=== PATIENT | female | born 1935 | race Caucasian/White ===

== ENCOUNTER 2017-01-07 12:17 | Emergency (ER) | payer MEDICARE ==
[2017-01-07 12:36] VITALS: BP 141/55
--- NOTE | 2017-01-07 13:56 | UC ---
Neck Pain HPI - HPI Summary HPI Summary: Has a sebaceous cyst center upper back---has seen pcp and started on antibiotic- -with the plan to have it removed on Tuesday---Last night it opened and drained on its own, Patient was not sure how to take care of it - History of Current Complaint Chief Complaint: Pattie Stated Complaint: ABCESS ON NECK Time Seen by Provider: 01/07/17 13:44 Hx Obtained From: Patient ?: No Timing: Constant Onset/Duration: Gradual Onset, Still Present Severity: Mild Pain Intensity: 1 Pain Scale Used: 0-10 Numeric Location: Discrete At: - center of upper back Aggravating Factors: Nothing Alleviating Factors: Nothing, Heat Associated Signs & Symptoms: Positive: Negative - Allergies/Home Medications Allergies/Adverse Reactions: Allergies Allergy/AdvReac Type Severity Reaction Status Date / Time Sulfa Antibiotics Allergy Rash Verified 01/07/17 12:37 Home Medications: Home Medications Cyanocobalamin INJ * [Vitamin B12 INJ *] 1,000 mcg IM Q30D 01/07/17 [History Confirmed 01/07/17] PMH/Surg Hx/FS Hx/Imm Hx Previously Healthy: Yes - Surgical History Surgical History: Yes Surgery Procedure, Year, and Place: gallbladder. back surgery. colon resection for diverticulitis. reversal of colostomy - Family History Known Family History: Positive: None Family History: no cardio vascular issues in family lineage - Social History Occupation: Retired Lives: With Family Alcohol Use: Occasionally Substance Use Type: None Smoking Status (MU): Never Smoked Tobacco Review Of Systems Constitutional: Positive: Negative Skin: Positive: Other - opened and drained sebacous cyst center of upper back Eyes: Positive: Negative ENT: Positive: Negative Respiratory: Positive: Negative Cardiovascular: Positive: Negative Gastrointestinal: Positive: Negative Genitourinary: Positive: Negative Musculoskeletal: Positive: Negative Neurological: Positive: Negative Psychological: Positive: Negative All Other Systems Reviewed And Are Negative: Yes Physical Exam Triage Information Reviewed: Yes Appearance: Well-Appearing, No Pain Distress, Well-Nourished Vital Signs: Initial Vital Signs Temp 97.7 F 01/07/17 12:33 Pulse 64 01/07/17 12:33 Resp 16 01/07/17 12:33 BP 141/55 01/07/17 12:33 Pulse Ox 100 01/07/17 12:33 Vital Signs Reviewed: Yes Eye Exam: Normal Eyes: Positive: Conjunctiva Clear ENT Exam: Normal ENT: Positive: Normal ENT inspection, Hearing grossly normal. Negative: Nasal congestion, Nasal drainage, Trismus, Muffled/hoarse voice Dental Exam: Normal Neck exam: Normal Neck: Positive: Supple, Nontender, No Lymphadenopathy Respiratory Exam: Normal Respiratory: Positive: Chest non-tender, Lungs clear, Normal breath sounds, No respiratory distress Cardiovascular Exam: Normal Cardiovascular: Positive: RRR, No Murmur, Pulses Normal, Brisk Capillary Refill Musculoskeletal Exam: Normal Musculoskeletal: Positive: Strength Intact, ROM Intact, No Edema Neurological Exam: Normal Neurological: Positive: Alert, Muscle Tone Normal Psychological Exam: Normal Psychological: Positive: Normal Response To Family, Age Appropriate Behavior Skin: Positive: Other - beefy red drained cyst about dime size in diameter- Neck Pain Course/Dx - Course Course Of Treatment: soap and water wash warm compress change dressing bid and prn follow up with MD on Tuesday as planned - Differential Dx/Diagnosis Differential Dx/HQI/PQRI: Trauma, Other - Se[place] Cyst Provider Diagnoses: Draining Se[place] cyst center of upper back Discharge - Discharge Plan Condition: Stable Disposition: HOME Patient Education Materials: Cyst (ED), Warm Compress or Soak (ED) Referrals: Jalen Gibson MD [Primary Care Provider] - 01/10/17
== END 2017-01-07 13:59 | disposition home or self-care (01) ==
LOC: UCCORT 12:17
DX: L72.3 Sebaceous cyst (principal); Z88.2 Allergy status to sulfonamides; Z90.49 Acquired absence of other specified parts of digestive tract
CPT/HCPCS: 99201; G0463

== ENCOUNTER 2018-08-18 15:02 | Emergency (ER) | payer MEDICARE ==
[2018-08-18 15:42] VITALS: BP 152/65
--- NOTE | 2018-08-18 16:36 | UC ---
Hip/Pelvis Pain - HPI Summary HPI Summary: Pt c/o left hip pain and bruising s/p falling while walking off curb of road x 1 week ago. Pt is able to bear weight and ambulate with minimal c/o pain. - History Of Current Complaint Chief Complaint: UCLowerExtremity Stated Complaint: S/P FALL-LEFT HIP COMPLAINT Time Seen by Provider: 08/18/18 16:01 Hx Obtained From: Patient ?: No Onset/Duration: Sudden Onset, Lasting Days, Still Present Timing: Constant Severity Initially: Moderate Severity Currently: Mild Pain Intensity: 3 Character Of Pain: Dull, Aching Aggravating Factor(s): Movement, Weight Bearing Alleviating Factor(s): Rest, Position Associated Signs And Symptoms: Positive: Bruising - Risk Factors Septic Arthritis Risk Factor: Extremes of Age - Allergies/Home Medications Allergies/Adverse Reactions: Allergies Allergy/AdvReac Type Severity Reaction Status Date / Time Sulfa (Sulfonamide Allergy Intermediate Rash Verified 08/18/18 15:42 Antibiotics) PMH/Surg Hx/FS Hx/Imm Hx Previously Healthy: Yes - Surgical History Surgical History: Yes Surgery Procedure, Year, and Place: gallbladder. back surgery. colon resection for diverticulitis. reversal of colostomy - Family History Known Family History: Positive: Cardiac Disease Family History: no cardio vascular issues in family lineage - Social History Occupation: Retired Lives: Alone Alcohol Use: Occasionally Substance Use Type: None Smoking Status (MU): Never Smoked Tobacco Have You Smoked in the Last Year: No Review of Systems All Other Systems Reviewed And Are Negative: Yes Constitutional: Positive: Negative Skin: Positive: Bruising - left lateral upper thigh extendign to just above left knee. Eyes: Positive: Negative ENT: Positive: Negative Respiratory: Positive: Negative Cardiovascular: Positive: Negative Gastrointestinal: Positive: Negative Genitourinary: Positive: Negative Motor: Positive: Negative Neurovascular: Positive: Negative Musculoskeletal: Positive: Arthralgia - left hip, Myalgia Neurological: Positive: Negative Psychological: Positive: Negative Is Patient Immunocompromised?: No Physical Exam Triage Information Reviewed: Yes Appearance: Well-Appearing Vital Signs: Initial Vital Signs Temp 97.5 F 08/18/18 15:39 Pulse 70 08/18/18 15:39 Resp 16 08/18/18 15:39 BP 152/65 08/18/18 15:39 Pulse Ox 99 08/18/18 15:39 Vital Signs Reviewed: Yes Eye Exam: Normal ENT Exam: Normal Dental Exam: Normal Neck exam: Normal Respiratory: Positive: No respiratory distress Musculoskeletal Exam: Normal Neurological Exam: Normal Psychological Exam: Normal Skin Exam: Other - bruising left lateral thigh, extending to just above patella. in various stages of healing. Diagnostics - Radiology No standard instances Radiology Interpretation Completed By: Radiologist - IMPRESSION: OSTEOPENIA. NO ACUTE OSSEOUS INJURY. THE DEGREE OF OSTEOPENIA MAY MAKE A NONDISPLACED FRACTURE RADIOGRAPHICALLY OCCULT. IF SYMPTOMS PERSIST, RECOMMEND REPEAT IMAGING. Hip Injury Course/Dx - Differential Dx/Diagnosis Differential Diagnosis/HQI/PQRI: Contusion, Fracture, Hematoma Provider Diagnosis: Contusion of hip, left Discharge - Sign-Out/Discharge Documenting (check all that apply): Patient Departure All imaging exams completed and their final reports reviewed: Yes - Discharge Plan Condition: Stable Disposition: HOME Patient Education Materials: Hip Contusion (ED) Referrals: Jalen Gibson MD [Primary Care Provider] - As Soon As Possible - Billing Disposition and Condition Condition: STABLE Disposition: Home
== END 2018-08-18 16:42 | disposition home or self-care (01) ==
LOC: UCCORT 15:02
DX: S70.02XA Contusion of left hip, initial encounter (principal); W10.1XXA Fall (on)(from) sidewalk curb, initial encounter; Y93.01 Activity, walking, marching and hiking; Y92.9 Unspecified place or not applicable; M85.862 Other specified disorders of bone density and structure, left lower leg; Z88.2 Allergy status to sulfonamides
CPT/HCPCS: 99211; G0463